=== PATIENT | female | born 1950 | race Caucasian/White ===

== ENCOUNTER 2017-10-19 17:07 | Emergency (ER) | payer MEDICARE ==
[2017-10-19 17:36] VITALS: BP 163/81; PULSE 75; RESP 18; TEMP 98.1; O2SAT 99
--- NOTE | 2017-10-19 18:18 | C.PDOC ---
History Of Present Illness 67 yr old female presents to the ER with complaints of right flank and lower back pain gradually developed since early today. Patient reports of a mechanical fall, states she slipped outside landing on the right side of her body. States the pain is mainly on right flank and right lower back. Patient states the pain is localized and worse with movement. Patient denies LOC, syncope, headache, dizziness, neck pain, CP, SOB, abd. pain, V/D, denies saddle anesthesia, incontince, denies obvious deformity, weakness, sensory or vascular deficits to B/L UEs and LEs. Ambulate to Ed for evaluation, appear sin pain. Time Seen by Provider: 10/19/17 17:51 Chief Complaint (Nursing): Back Pain History Per: Patient History/Exam Limitations: no limitations Onset/Duration Of Symptoms: Days (1) Past Medical History Reviewed: Historical Data, Nursing Documentation, Vital Signs Vital Signs: Last Vital Signs Temp 98.1 F 10/19/17 17:33 Pulse 75 10/19/17 17:33 Resp 18 10/19/17 17:33 BP 163/81 H 10/19/17 17:33 Pulse Ox 99 10/19/17 19:52 Family History: States: No Known Family Hx - Social History Hx Tobacco Use: No Hx Alcohol Use: No Hx Substance Use: No - Immunization History Hx Tetanus Toxoid Vaccination: No Hx Influenza Vaccination: No Hx Pneumococcal Vaccination: No Review Of Systems Except As Marked, All Systems Reviewed And Found Negative. Musculoskeletal: Positive for: Back Pain (right lower back pain). Negative for : Neck Pain Neurological: Negative for: Weakness, Numbness Physical Exam - Physical Exam Appears: Well, Non-toxic, No Acute Distress Skin: Warm, Dry, No Ecchymosis Head: Atraumatic, Normacephalic Eye(s): bilateral: PERRL Nose: No Deformity, No Tenderness Oral Mucosa: Moist, No Drooling Throat: No Drooling Neck: Trachea Midline, No Midline Cervical Tenderness, No Paracervical Tenderness, No Step Off Deformity, Supple Cardiovascular: Rhythm Regular, No Murmur Respiratory: No Decreased Breath Sounds, No Accessory Muscle Use, No Rales, No Rhonchi, No Stridor, No Wheezing Gastrointestinal/Abdominal: Soft, No Tenderness, No Distention, No Guarding Back: No CVA Tenderness, No Vertebral Tenderness, Paraspinal Tenderness (right paraspinal lumbar tenderness), Other (+ right flank tenderness) Extremity: Normal ROM, No Tenderness, No Pedal Edema, No Deformity, No Swelling Neurological/Psych: Oriented x3, Normal Speech, Normal Motor, Normal Sensation, Normal Reflexes ED Course And Treatment O2 Sat by Pulse Oximetry: 99 (RA) Pulse Ox Interpretation: Normal - CT Scan/US CT - Lumbar Spine Other Rad Studies (CT/US): Read By Radiologist, Radiology Report Reviewed CT/US Interpretation: EXAM: CT Lumbar Spine Without Intravenous Contrast. EXAM DATE/TIME: 10/19/2017 6:02 PM. CLINICAL HISTORY: 67 years old, female; Injury or trauma; Fall; Initial encounter; Sprain or strain, lumbar ligaments;. Additional info: Injury to right flank, lower back pain. TECHNIQUE: Axial computed tomography images of the lumbar spine without intravenous contrast. All CT scans. at this facility use one or more dose reduction techniques, viz. : automated exposure control; ma/kV. adjustment per patient size (including targeted exams where dose is matched to indication; i.e. head);. or iterative reconstruction technique. Coronal and sagittal reformatted images were created and reviewed. COMPARISON: There are no prior studies for comparison. FINDINGS : Vertebrae: T12 and 5 lumbar vertebral bodies are normal in height. There are no fractures. There is. anterolisthesis L4 on L5. There is multilevel degenerative change. There is disc space narrowing T11-. T12, T12-L1, L1/L2, L2 /L3 and L3/L4. There is only mild disc space narrowing L4-L5 and L5-S1. There is small posterior bony spur is L1-L2, L2-L3 and L3-L4. There is mild posterior disc bulging L4-. L5. There is degenerative facet disease greatest at lower levels. Sacroiliac joints are patent. Discs/spinal canal/neural foramina: See above. Soft tissues: Psoas and paraspinous muscles are symmetric. Vasculature : There are vascular calcifications. Retroperitoneal space: No acute abnormalities are seen retroperitoneum. IMPRESSION: Degenerative change, no fracture. Thank you for allowing us to participate in the care of your patient. Dictated and Authenticated by: Trinidad Carbone MD. 2017 7:27 PM Eastern Time ([place] Progress Note: On re-evaluation, pt is afebrile, hemodynamicaly stable. Non- toxic. Ambulatory in ED with stable gait. Head: AT/NC. neck: Supple, (-) midline tenderness. Lungs: CTA B/L, BS equal B/L. Abd: benign, (-) guarding, ( -) rebound. back: (-) midline tenderness. Neurologicaly intact. Imaging review and appears without acute abnormalities. Pt has clinical findings c/w Right sided contusion s/p mechanical fall. Pt advised. ref. to f/u with PMD in 2-3 days for re-eval. return to ED if any worsening or new changes. Medical Decision Making Medical Decision Making: PLAN: * CT - Lumbar Spine * Tramdol PO * Valium PO Disposition Counseled Patient/Family Regarding: Studies Performed, Diagnosis, Need For Followup, Rx Given - Disposition Referrals: [facility] [Outside] Disposition: HOME/ ROUTINE Disposition Time: 19:20 Condition: STABLE Additional Instructions: LIGHT DUTY TO LOWER BACK, NO PHYSICAL ACTIVITY FOR 1 WEEK TAKE MEDICATION PRESCRIBED NEED FOLLOW UP WITH PMD IN 2-3 DAYS FOR RE-EVALUATION. RETURN TO ED IF ANY WORSENING OR NEW CHANGES. Prescriptions: Ibuprofen [Motrin Tab] 600 mg PO Q6 #20 tab Methocarbamol [Robaxin] 500 mg PO TID #14 tab traMADol [Ultram] 50 mg PO TID #7 tab Instructions: Low Back Pain in Adults, Lumbar Muscle Strain Forms: [employer] (Paraguayan) Print Language: PALAUAN - Clinical Impression Clinical Impression: Low back strain - PA / A&P MECHANIC / Resident Statement MD/DO has reviewed & agrees with the documentation as recorded. - Scribe Statement The provider has reviewed the documentation as recorded by the Scribe Mara James All medical record entries made by the Scribaurelio were at my direction and personally dictated by me. I have reviewed the chart and agree that the record accurately reflects my personal performance of the history, physical exam, medical decision making, and the department course for this patient. I have also personally directed, reviewed, and agree with the discharge instructions and disposition.
--- NOTE | 2017-10-19 19:27 | CT ---
EXAM: CT Lumbar Spine Without Intravenous Contrast EXAM DATE/TIME: 10/19/2017 6:02 PM CLINICAL HISTORY: 67 years old, female; Injury or trauma; Fall; Initial encounter; Sprain or strain, lumbar ligaments; Additional info: Injury to right flank, lower back pain TECHNIQUE: Axial computed tomography images of the lumbar spine without intravenous contrast. All CT scans at this facility use one or more dose reduction techniques, viz.: automated exposure control; ma/kV adjustment per patient size (including targeted exams where dose is matched to indication; i.e. head); or iterative reconstruction technique. Coronal and sagittal reformatted images were created and reviewed. COMPARISON: There are no prior studies for comparison. FINDINGS: Vertebrae: T12 and 5 lumbar vertebral bodies are normal in height. There are no fractures. There is anterolisthesis L4 on L5. There is multilevel degenerative change. There is disc space narrowing T11-T12, T12-L1, L1/L2, L2/L3 and L3/L4. There is only mild disc space narrowing L4-L5 and L5-S1. There is small posterior bony spur is L1-L2, L2-L3 and L3-L4. There is mild posterior disc bulging L4-L5. There is degenerative facet disease greatest at lower levels. Sacroiliac joints are patent. Discs/spinal canal/neural foramina: See above. Soft tissues: Psoas and paraspinous muscles are symmetric. Vasculature: There are vascular calcifications. Retroperitoneal space: No acute abnormalities are seen retroperitoneum. IMPRESSION: Degenerative change, no fracture
== END 2017-10-19 19:51 | disposition home or self-care (01) ==
LOC: C.ER 17:07
DX: S39.012A Strain of muscle, fascia and tendon of lower back, initial encounter (principal); W01.0XXA Fall on same level from slipping, tripping and stumbling without subsequent striking against object, initial encounter

== ENCOUNTER 2018-05-29 15:25 | Emergency (ER) | payer MEDICARE ==
[2018-05-29 15:42] VITALS: BMI 26.6
[2018-05-29 15:44] VITALS: BP 127/77; PULSE 86; RESP 16; TEMP 98.3; O2SAT 97
--- NOTE | 2018-05-29 16:35 | C.PDOC ---
History Of Present Illness 68 y/o female presets to ED with c/o right thumb pain s/p fall yesterday. Patient states she tripped and fell yesterday and reached out with hand, noted swelling to DIP of right thumb and decreased motion with flexing. Patient denies change in sensation, loc or any other complaints at this time. Time Seen by Provider: 05/29/18 15:50 Chief Complaint (Nursing): Finger,Hand,&Wrist History Per: Patient History/Exam Limitations: no limitations Onset/Duration Of Symptoms: Days Current Symptoms Are (Timing): Still Present Past Medical History Reviewed: Historical Data, Nursing Documentation, Vital Signs Vital Signs: Last Vital Signs Temp 98.3 F 05/29/18 15:42 Pulse 86 05/29/18 15:42 Resp 16 05/29/18 15:42 BP 127/77 05/29/18 15:42 Pulse Ox 97 05/29/18 15:42 - Medical History PMH: No Chronic Diseases Surgical History: No Surg Hx Family History: States: No Known Family Hx - Social History Hx Tobacco Use: No Hx Alcohol Use: No Hx Substance Use: No - Immunization History Hx Tetanus Toxoid Vaccination: No Hx Influenza Vaccination: No Hx Pneumococcal Vaccination: No Review Of Systems Musculoskeletal: Positive for: Hand Pain Skin: Negative for: Rash, Bruising Neurological: Negative for: Weakness, Numbness Physical Exam - Physical Exam Appears: Non-toxic, No Acute Distress Skin: Warm, Dry, No Rash Head: Atraumatic, Normacephalic Eye(s): bilateral: Normal Inspection Oral Mucosa: Moist Extremity: Tenderness (to right thumb), Other (thickened joint consistent with arthritis to right 2nd to 5th fingers) Extremity: Right: Limited ROM To Joint (right thumb secondary to pain) Pulses: Right Radial: Normal Neurological/Psych: Oriented x3, Normal Motor, Normal Sensation ED Course And Treatment O2 Sat by Pulse Oximetry: 97 (RA) Pulse Ox Interpretation: Normal Disposition - Disposition Disposition: HOME/ ROUTINE Disposition Time: 16:34 Condition: STABLE Prescriptions: Naproxen [Naprosyn] 1 tab PO BID PRN #25 tab PRN Reason: Pain Instructions: Finger Sprain (DC) Forms: Gen Discharge Inst Mozambican, [facility] (Mozambican) - POA Present On Arrival: None - Clinical Impression Clinical Impression: Sprain of right thumb - Scribe Statement The provider has reviewed the documentation as recorded by the Gifty Gutierrez All medical record entries made by the Gifty were at my direction and personally dictated by me. I have reviewed the chart and agree that the record accurately reflects my personal performance of the history, physical exam, me dical decision making, and the department course for this patient. I have also personally directed, reviewed, and agree with the discharge instructions and disposition.
[2018-05-29] MEDS ORDERED: Naproxen 550 mg Tab PO STA (16:38)
[2018-05-29] MEDS ORDERED: Naproxen 550 mg Tab PO ONE (16:44)
--- NOTE | 2018-05-29 17:04 | RAD ---
Date of service: 05/29/2018 PROCEDURE: Right Thumb radiographs. HISTORY: fall COMPARISON: None. TECHNIQUE: AP radiograph of the right hand, as well as spot oblique and lateral images of thumb were obtained. FINDINGS: RIGHT THUMB: No fracture. Osteoarthritis of 1st interphalangeal joint. Osteoarthritis of 2nd PIP, 3rd and 4th DIP and 5th PIP joints. No articular erosion. JOINTS: As above SOFT TISSUES: Normal. OTHER FINDINGS: None. IMPRESSION: Osteoarthritis of multiple articulations. No acute fracture.
== END 2018-05-29 16:51 | disposition home or self-care (01) ==
LOC: C.ER 15:25
DX: S63.601A Unspecified sprain of right thumb, initial encounter (principal); W01.0XXA Fall on same level from slipping, tripping and stumbling without subsequent striking against object, initial encounter